=== PATIENT | female | born 1995 | race Two or more races ===

== ENCOUNTER 2021-11-15 17:10 | Emergency (ER) | payer OTHER ==
[~2021-11-15] VITALS: Ht 167.6 cm; Wt 70.3 kg
[2021-11-15] MEDS ORDERED: ZITHROMAX500 MG PO (19:49)
[2021-11-15] MEDS ORDERED: MEDROLPACK PO (19:49)
[2021-11-15] MEDS ORDERED: DOLOGEN CAPLET1 EACH PO (19:50)
[2021-11-15] MEDS ORDERED: TUSNEL LIQUID178 ML PO (19:50)
== END 2021-11-15 20:09 | disposition home or self-care (01) ==
LOC: ER 17:10
DX: U07.1 COVID-19 (principal)